=== PATIENT | male | born 1965 | race Caucasian/White ===

== ENCOUNTER 2016-08-16 20:49 | Emergency (ER) | payer BC ==
--- NOTE | ~2016-08-16 | CT2 ---
[facility] A Service of [facility] & [facility] RADIOLOGY TEXT RESULTS PATIENT: JUDE ECHOLS JR LOCATION: [facility] : [birth year] UNIT #: [id number] AGE: [address]: Germain Benitez MD SEX: M ORDER DR: [id number] [facility] [address] [place], [place] [address] [id number] E MR#: [id number] Acc #: [id number] NAME: JUDE ECHOLS JR : 1965 SEX: M STUDY DATE/TIME: 08/16/2016 22:00 UNIT: [facility] ROOM: STUDY DESCRIPTION: CT Abd and Pelv W Cont Attending Physician: Germain Benitez M.D. Ordering Physician: Ed Doctor [id number] [facility] Primary Care Physician: Toan Osorio M.D. MEDICAL IMAGING REPORT This report is preliminary unless electronic signature is present EXAM CT abdomen and pelvis 08/16/2016 at 22:00 INDICATION Abdominal pain that started while bowling today. Pain is predominantly in the mid abdomen. Patient scheduled for hernia surgery in the morning. Pain is currently 10/10. TECHNIQUE Axial images were obtained through the abdomen and pelvis following oral and IV contrast administration. Multiplanar reformats were obtained. Comparison made with 11/26/2012. This CT examination was performed with one or more of the following radiation dose reduction techniques: automatic exposure control, adjustment of mA and/or kV according to patient size, and iterative reconstruction. FINDINGS ABDOMEN: There is dependent atelectasis in the lung bases. Very mild fatty infiltration of the liver is seen. Solid organs are otherwise normal. No free fluid or adenopathy. The gallbladder is normal. There is no biliary obstruction. The GI tract is normal. There are a 2 tiny adjacent fat containing ventral wall hernias. 1 is just to the right of midline and measures about 1.4 cm in width. The other is at the midline and measures only about 7 mm in width. Both of these contain abdominal fat. These are both 8-9 cm above the umbilicus. PELVIS: There has been interval appendectomy. Solid organs are otherwise normal. Urinary bladder is normal. There is no free fluid. IMPRESSION 1. No acute findings in the abdomen or pelvis. Other than changes of interval appendectomy, the GI tract is normal. 2. 2 very small fat-containing ventral wall hernias near the midline 8-9 STS. [facility] A Service of [facility] & [facility] RADIOLOGY TEXT RESULTS PATIENT: JUDE ECHOLS JR LOCATION: [facility] #: [id number] : [birth year] UNIT #: [id number] AGE: [address]: Germain Benitez MD SEX: M ORDER DR: cm above the umbilicus. 3. Mild hepatic steatosis. Dictated by... Joselo Rutherford Jr., M.D. THIS IS AN ELECTRONICALLY VERIFIED REPORT Joselo Rutherford Jr., M.D. at 08/17/2016 12:35 PM ALLISON/mary TD: 08/17/2016 11:15 JOB #: [id number] MEDICAL IMAGING REPORT COPY
[~2016-08-16 20:49] MED LIST: ECOTRIN81 M1 PO; FISH OIL 1,0001 CA2 PO; FISH OIL 1,0001 CAP PO; FLOMAX0.4 M1 PO; MULTI VITAMIN1 EACH PO; MULTIPLE VITAMI1 T11 PO; PERCOCET 51 UDTAB 5/ DOB; PHENERGAN25 M1 PO; TYLOX1 CAP 5/50 PO; ZOFRAN PO
[2016-08-16 21:04] LABS: BASOPHIL% 0.6 % (0-2.5); DIFF IND NO; EOSINOPHIL# 0.3 X10e3 (0-0.7); EOSINOPHIL% 4.5 % (0.0-7.0); HEMATOCRIT 46.8 % (38.0-50.0); HEMOGLOBIN 15.9 gm/dL (13.0-16.0); LYMPHOCYTE# 2.3 X10e3 (1.0-3.5); LYMPHOCYTE% 31.5 % (17.0-45.0); MEAN CELL VOLUME 87.7 FL (83-96); MEAN CORPUSCULAR HEMOGLOBIN 29.8 PG (28-34); MEAN PLATELET VOLUME 7.3 FL (6.5-11.5); MONOCYTE# 0.6 X10e3 (0-1.0); MONOCYTE% 8.1 % (3.0-12.0); NEUTROPHIL# 4.1 X10e3 (1.5-7.1); NEUTROPHIL% 55.3 % (40-75); PLATELET COUNT 192 X10e3 (140-420); RED BLOOD COUNT 5.34 X10e (3.90-5.60); RED CELL DISTRIBUTION WIDTH 13.2 % (11.0-15.5); WHITE BLOOD COUNT 7.4 X10e3 (4.0-10.5)
[2016-08-16 21:39] LABS: ALBUMIN SERUM 4.4 g/dL (3.5-5.0); ALKALINE PHOSPHATASE 49 U/L (32-92); ALT (SGPT) 28 U/L (10-40); AST (SGOT) 27 U/L (10-42); BILIRUBIN, DIRECT 0.1 mg/dL (0.0-0.2); BILIRUBIN,TOTAL 1.1 mg/dL (0.2-2.0); BLOOD UREA NITROGEN 18 mg/dL (9-23); CALCIUM SERUM 9.3 mg/dL (8.4-10.2); CARBON DIOXIDE 26 mmol/L (22-31); CHLORIDE 106 mmol/L (100-111); CREATININE SERUM 1.2 mg/dL (0.6-1.4); GLOM FILT RATE Estimated ABOVE60 mL/min (>60); GLUCOSE FASTING 108 mg/dL (70-110); LIPASE 39 U/L (22-51); POTASSIUM 3.8 mmol/L (3.5-5.1); PROTEIN TOTAL SERUM 7.3 g/dL (6.0-8.3); SODIUM 141 mmol/L (135-145)
== END 2016-08-16 23:00 | disposition home or self-care (01) ==
LOC: CED 20:49
PROVIDERS: Emergency Medicine
DX: R10.9 Unspecified abdominal pain (principal); Z90.89 Acquired absence of other organs; Z79.899 Other long term (current) drug therapy; Z87.891 Personal history of nicotine dependence
CPT/HCPCS: 36415; 74177; 80048; 80076; 83690; 85025; 96374; 96375; 99284; J1170; J2270; J2405; Q9967

== ENCOUNTER → 2016-08-17 | Day surgery (SDC) | payer BC ==
--- NOTE | ~2016-08-17 | OR ---
Unit #: [id number] #: [id number] Patient: JUDE ECHOLS JR [id number] [address] [address] [id number] O MR#: [id number] NAME: JUDE ECHOLS JR ROOM: Date of Procedure: 08/17/2016 Admission Date: 08/17/2016 Surgeon: Jovi Mojica M.D. : 1965 Attending Physician: Jovi Mojica M.D. Primary Care Physician: Toan Osorio M.D. OPERATIVE REPORT PREOPERATIVE DIAGNOSIS Incarcerated incisional hernia. POSTOPERATIVE DIAGNOSIS 2 cm incarcerated incisional hernia, epigastric. PROCEDURE PERFORMED Laparoscopic ventral hernia repair of incarcerated incisional hernia with 8 x 6 Ventralight mesh. SIZE CUTTER Sherman. ANESTHESIA General endotracheal anesthesia. ESTIMATED BLOOD LOSS Minimal. IV FLUIDS 800 crystalloid. COMPLICATIONS None. INDICATIONS FOR PROCEDURE The patient is a 50-year-old gentleman, who presents with an incarcerated hernia secondary to port site from previous laparoscopic appendectomy. DESCRIPTION OF PROCEDURE The patient was taken to the operating theater and placed in supine position. General anesthesia was induced. The abdomen was prepped and draped. A 5 mm Optiview trocar was placed into the left upper quadrant without difficulty. The abdomen was insufflated to 15 mmHg with CO2. Under direct vision, I placed left lower quadrant 10 mm port. General inspection of the abdomen revealed a 2 cm incarcerated hernia. This was reduced with gentle traction. I then took down the falciform ligament with Bovie electrocautery. I placed an 8 x 6 Ventralight mesh. This covered the defect as well as the umbilicus which appeared to be have a weakened area. This covered the defect by at least 5 cm in all circumference. This was held in place with single-stranded Vicryl sutures and delivered transcutaneous. I then tacked using a tacking device in 2 Unit #: [id number] #: [id number] Patient: JUDE ECHOLS JR circumferential rows with each tack being 1.5 cm from previous tack. Hemostasis was adequate. I removed the ports under direct vision. The wound was closed with 4-0 Vicryl. The positioning sutures were cut at skin level. The patient tolerated the procedure well and sent to recovery in good condition. Dictated by... Preethi Doss/rhona TD: 08/18/2016 03:06 JOB #: [id number] OPERATIVE REPORT X Jovi Mojica MD X PROCEDURE OPERATIVE NOTE
== END | disposition home or self-care (01) ==
LOC: CSUR 07:53
PROVIDERS: Surgery
PROC: 0WUF4JZ Supplement Abdominal Wall with Synthetic Substitute, Percutaneous Endoscopic Approach (ICD-10-PCS; principal; 2016-08-17 09:30)
DX: K43.0 Incisional hernia with obstruction, without gangrene (principal); G47.33 Obstructive sleep apnea (adult) (pediatric); Z98.890 Other specified postprocedural states; E66.9 Obesity, unspecified; Z68.36 Body mass index [BMI] 36.0-36.9, adult; E78.1 Pure hyperglyceridemia; L57.0 Actinic keratosis; Z79.899 Other long term (current) drug therapy; Z87.442 Personal history of urinary calculi; Z98.52 Vasectomy status; Z90.49 Acquired absence of other specified parts of digestive tract; Z80.1 Family history of malignant neoplasm of trachea, bronchus and lung
CPT/HCPCS: C1787; J0131; J0330; J0690; J1644; J1885; J2250; J2405; J2710; J3010